=== PATIENT | female | born 1965 | race Caucasian/White ===

== ENCOUNTER 2016-11-06 14:51 | Emergency (ER) | payer OTHER ==
[~2016-11-06] VITALS: Wt 56.0 kg
[2016-11-06] MEDS ORDERED: CYCL-319 PO (15:45)
[2016-11-06] MEDS ORDERED: IBUP-1542 PO (15:45)
--- NOTE | 2016-11-06 15:59 | ERD ---
ER Documentation Chief Complaint Date/Time DATE: 11/06/16 TIME: 15:53 Chief Complaint jaw pain s/p dental procedure HPI 51-year-old female presenting to the emergency room complaining of left-sided mandibular pain for 3 weeks status post dental procedure. Patient states that the pain is moderate in severity and it is difficult for her to sleep at nighttime due to the pain. Patient states that she has followed up with her dentist in which they have done a workup including XRAYs stating there is no infection. Patient states that she takes Motrin and it does help her. She denies any fever. ROS All systems reviewed and are negative except as per history of present illness. Medications Home Meds Active Scripts Cyclobenzaprine Hcl* (Cyclobenzaprine Hcl*) 10 Mg Tablet, 10 MG PO TID, #15 TAB Prov:KARAN LIMA PA-C 11/06/16 Ibuprofen* (Ibuprofen*) 600 Mg Tablet, 600 MG PO Q6H Y for PAIN, #30 TAB Prov:KARAN LIMA PA-C 11/06/16 Reported Medications [None] No Conflict Check 08/20/10 Allergies Allergies: Coded Allergies: No Known Drug Allergies (Verified Allergy, Mild, 10/01/10) PMhx/Soc History of Surgery: Yes (appe) Anesthesia Reaction: No Hx Neurological Disorder: No Hx Respiratory Disorders: No Hx Cardiac Disorders: No Hx Psychiatric Problems: No Hx Miscellaneous Medical Probl: No Hx Alcohol Use: No Hx Substance Use: No Hx Tobacco Use: No Physical Exam Vitals Vital Signs Date Time Temp Pulse Resp B/P Pulse Ox O2 Delivery O2 Flow Rate FiO2 11/06/16 15:01 97.8 73 20 150/67 100 Physical Exam Const: Well-developed well-nourished no acute distress Head: Atraumatic Oropharynx, TTP on the left mandibular region, linea alba in oropharynx Eyes: Normal Conjunctiva ENT: Normal External Ears, Nose and Mouth. Neck: Full range of motion..~ No meningismus. Resp: Clear to auscultation bilaterally Cardio: Regular rate and rhythm, no murmurs Abd: Soft, non tender, non distended. Normal bowel sounds Skin: No petechiae or rashes Back: No midline or flank tenderness Ext: No cyanosis, or edema Neur: Awake and alert Psych: Normal Mood and Affect Procedures/MDM This is a 51-year-old female presenting to the emergency room complaining of left mandibular pain for 3 weeks status post dental procedure that occurred. Patient states that she has been following up with her dentist, in which they did x-rays and a workup and did not find anything. This is likely due to TMJD or mandibular strain. I have a low suspicion for mandibular fracture, dislocation or acute cardiac conditions. Patient does get relief from ibuprofen therefore I will give her prescription for ibuprofen 600 mg take every 6 hours along with Flexeril, I discussed to follow-up with the dentist in the next couple days. Discussed return to ER for any worsening symptoms. Patient understands and agrees with plan Departure Diagnosis: Primary Impression: TMJ arthralgia Laterality: left Qualified Code: M26.622 - Arthralgia of left temporomandibular joint Condition: Fair Patient Instructions: Helping Your Temporomandibular Joint (TMJ) Heal, Tmj Syndrome Referrals: [facility] YOU HAVE RECEIVED A MEDICAL SCREENING EXAM AND THE RESULTS INDICATE THAT YOU DO NOT HAVE A CONDITION THAT REQUIRES URGENT TREATMENT IN THE EMERGENCY DEPARTMENT. FURTHER EVALUATION AND TREATMENT OF YOUR CONDITION CAN WAIT UNTIL YOU ARE SEEN IN YOUR DOCTORS OFFICE WITHIN THE NEXT 1-2 DAYS. IT IS YOUR RESPONSIBILITY TO MAKE AN APPOINTMENT FOR FOLOW-UP CARE. IF YOU HAVE A PRIMARY DOCTOR --you should call your primary doctor and schedule an appointment IF YOU DO NOT HAVE A PRIMARY DOCTOR YOU CAN CALL OUR PHYSICIAN REFERRAL HOTLINE AT IF YOU CAN NOT AFFORD TO SEE A PHYSICIAN YOU CAN CHOSE FROM THE FOLLOWING [facility] [address] [facility] [address] [facility] [facility] [facility] [place] [address] [facility] [facility] [address] [facility]. [facility] [address] [facility]. [facility]. [address] Additional Instructions: Visite a [employer] para un EXAMEN.Regrese a estas instalaciones si no se mejora lv esperbamos o lv le dijimos. [place] toda la medicina leida y lv se le indic. Regrese a estas instalaciones si no se mejora lv esperbamos o lv le dijimos. KARAN LIMA PA-C Nov 06, 2016 15:59
== END 2016-11-06 16:24 | disposition home or self-care (01) ==
LOC: FTE 14:51
DX: M26.622 Arthralgia of left temporomandibular joint (principal)
CPT/HCPCS: 99283